=== PATIENT | male | born 1980 | race Two or more races ===

== ENCOUNTER 2021-04-21 02:12 | Emergency (ER) | payer OTHER ==
[~2021-04-21] VITALS: Ht 190.5 cm; Wt 108.9 kg
[~2021-04-21 02:12] MED LIST: GUAIFENESIN PO; NASONEX17 GM NS; ZITHROMAX500 MG PO
[2021-04-21] MEDS ORDERED: CEPHALEXIN500 M1 PO (03:07)
[2021-04-21] MEDS ORDERED: MUPIROCIN22 GM TOP (03:07)
== END 2021-04-21 03:44 | disposition home or self-care (01) ==
LOC: ER 02:12
DX: S80.811A Abrasion, right lower leg, initial encounter (principal); W45.8XXA Other foreign body or object entering through skin, initial encounter; Y93.89 Activity, other specified; Y92.89 Other specified places as the place of occurrence of the external cause; Y99.8 Other external cause status

== ENCOUNTER 2021-10-24 15:02 | Emergency (ER) | payer OTHER ==
[~2021-10-24] VITALS: Ht 190.5 cm; Wt 113.4 kg
[~2021-10-24 15:02] MED LIST changes: +CEPHALEXIN500 M1 PO; +MUPIROCIN22 GM TOP
== END 2021-10-24 20:48 | disposition home or self-care (01) ==
LOC: ER 15:02
DX: U07.1 COVID-19 (principal); B34.8 Other viral infections of unspecified site

== ENCOUNTER 2023-11-16 19:50 | Emergency (ER) | payer OTHER ==
[~2023-11-16] VITALS: Ht 190.5 cm; Wt 114.3 kg
[2023-11-16 21:59] LABS: HEMATOCRIT 50.6 % (39.0-48.0); HEMOGLOBIN 16.6 g/dL (13-16.00); MEAN CORPUSCULAR HGB CONC 32.9 g/dl (32.0-36.0); PLATELET COUNT 264 K/uL (150-450); RED BLOOD COUNT 6.17 M/uL (4.00-6.00)
[2023-11-16 22:01] LABS: URINE APPEARANCE Clear; URINE BILIRRUBIN Negative (NEGATIVE); URINE BLOOD Negative; URINE COLOR Yellow; URINE GLUCOSE Negative (NEGATIVE); URINE LEUKOCYTE Small; URINE NITRATE Negative; URINE PROTEIN Negative (NEGATIVE); URINE UROBILINOGEN 0.2 E.U./dl
[2023-11-16 22:09] LABS: URINE BACTERIA 16.3 uL (0.0-1933); URINE RBC 37.7 uL (0.0-20.8); URINE WBC 4.4 uL (0.0-23.2)
[2023-11-16 22:14] LABS: CALCIUM 9.7 mg/dL (8.5-10.1); GFR 81.94; POTASSIUM 4.64 mEq/L (3.5-5.1)
[2023-11-16 22:16] LABS: URINE EPITHELIAL CELLS 0.9 uL (0.0-38.8)
[2023-11-16] MEDS ORDERED: ZYRTEC10 MG PO (23:38)
[2023-11-16] MEDS ORDERED: AMOX-CLAV 875-1 EACH PO (23:38)
[2023-11-16] MEDS ORDERED: NASONEX 24HR AL17 ML IH (23:38)
[2023-11-16] MEDS ORDERED: LOSARTAN POTAS100 MG PO (23:38)
== END 2023-11-16 23:43 | disposition home or self-care (01) ==
LOC: ER 19:50
PROVIDERS: General Practice
DX: J32.9 Chronic sinusitis, unspecified (principal); I10 Essential (primary) hypertension; Z20.822 Contact with and (suspected) exposure to COVID-19